=== PATIENT | female | born 1985 | race Caucasian/White ===

== ENCOUNTER 2017-04-30 11:47 | Emergency (ER) | payer BC, OTHER ==
[~2017-04-30] VITALS: Ht 165.1 cm; Wt 90.4 kg
[2017-04-30 11:55] VITALS: TEMP 36.7; Ht 165.1 cm; Wt 90.4 kg
[2017-04-30 12:34] VITALS: BP 135/84; PULSE 74; O2SAT 96
--- NOTE | 2017-04-30 16:32 | EMERGENCY ROOM VISIT NOTE ---
History Report prepared by Ede: Radha Kulkarni Under the Supervision of: Dr. Miller Lyon M.D. First contact with patient: 12:19 Chief Complaint: ALLERGIC REACTION Stated Complaint: ALLERGIC REACTION TO MEDICATION Nursing Triage Summary: triage note: pt rash and swelling to face since tuesday "i was taking penicillan and tyelnoal 3 for an abscessed tooth, my dentist changed it to clindamycin and i went to the acute care clinic for a steroid shot and they told me if my symptoms were still persisting to come to the ed, today my rash is on my chest too." pt reports taking no benedryl today. History of Present Illness The patient is a 32 year old female who presents to the Emergency Room with complaints of a worsening allergic reaction starting yesterday morning. She has a tooth abscess which is being pulled in 2 days. She took penicillin and Tylenol with codeine at night 2 days ago and went to sleep. She woke up yesterday with a rash on her face which is hot and itchy. She tried Benadryl to no significant relief. She went to urgent care and received a shot of steroid. She was sent home with a prednisone taper which she did not take. She was instructed to go to the ED if she did not improve today. She woke up today and noticed that the rash had spread to her chest. She denies any tongue swelling, difficulty breathing, fever, or vomiting. She does not have the rash on her arms or legs. She has stopped taking both the Tylenol with codeine and the penicillin. She is now on clindamycin. She has experienced nausea with morphine before, but no rash. She notes that when she had an epidural before during labor , she had similar itchiness to the face, but it was worse. She denies any family history of penicillin allergy. She does have dogs and cats at home. Source of History: patient Onset: yesterday morning Position: other (global) Quality: other (allergic reaction) Timing: worsening Associated Symptoms: No fevers, No vomiting Note: Pt reports itchiness and redness. Pt denies tongue swelling, difficulty breathing. Review of Systems See HPI for pertinent positives & negatives. A total of 10 systems reviewed and were otherwise negative. Past Medical & Surgical Medical Problems: (1) Asthma Surgical Problems: (1) S/P hysterectomy Family History Hypertension Seizures Social History Smoking Status: Current Every Day Smoker Marital Status: Housing Status: lives with family Physical Exam Vital Signs Date Time Temp Pulse Resp B/P (MAP) Pulse Ox O2 Delivery O2 Flow Rate FiO2 04/30/17 12:34 74 18 135/84 96 04/30/17 11:55 36.7 74 18 135/84 96 Room Air 04/30/17 11:53 97 Room Air Physical Exam Constitutional: Vital signs reviewed. Eyes: Pupils are equal round reactive to light. Conjunctiva are noninjected. ENT: Pharynx is clear without erythema or exudate. Mucous membranes are moist. No swelling to the gums. Neck supple without meningeal signs. No swelling to the uvula or tongue. No cervical lymphadenopathy. No mucosal lesions. Respiratory: Clear to auscultation bilaterally. Breath sounds are equal bilaterally. No wheezing or stridor. Cardiovascular: Regular rate and rhythm. No rubs or gallops. GI: Soft, nondistended and nontender. Bowel sounds are present. Musculoskeletal: No peripheral edema. No lower extremity tenderness. Integumentary: No cyanosis. Erythema to the face, neck, and upper chest with scattered papular lesions. No vesicles or bullae. No lesions to the back, abdomen, or extremities including the palms and soles. Neurological: The patient is awake and alert. No focal deficits. Psychiatric: Normal affect. Medical Decision & Procedures ED Course 1220: The patient was evaluated in room C3. A complete history and physical exam was performed. 1225: I discussed vincenzoight's findings with her. She verbalized agreement of the treatment plan. She was discharged home. Medical Decision This is a 32-year-old female who presents with a rash to her face and upper chest. Differential diagnosis includes urticaria, allergic reaction, heat rash , contact dermatitis. I did perform a limited focused review of portions of the patient's old chart on the electronic medical record. The patient has had no prior visits to this hospital. I did evaluate the patient as noted above. The patient is presenting with a rash to her face and upper chest. She states it feels similar to when she had an allergic reaction to medication given to her the an epidural when she was in labor. She started penicillin and Tylenol No. 4 prior to the rash developing. She did stop these medication and is currently on clindamycin for her tooth. She is following up with her dentist regarding this tooth. She presents with a rash to her face without any signs of angioedema. At this time her symptoms seem most likely consistent with some type of allergy. It was recommended that she continue taking antihistamines at home and start her prednisone taper as prescribed by her other physician. She was discharged in good condition and advised follow with her doctor. Medication Reconcilliation Current Medication List: was personally reviewed by me Blood Pressure Screening Patient's blood pressure: Elevated blood pressure Blood pressure disposition: Referred to PCP Impression Primary Impression: Allergic reaction Additional Impression: Pain, dental Scribe Attestation The scribe's documentation has been prepared under my direct and personally reviewed by me in its entirety. I confirm that the note above accurately reflects all work, treatment, procedures, and medical decision making performed by me. Departure Information Dispostion Home / Self-Care Referrals Linda Emanuel M.D. (PCP) Forms HOME CARE DOCUMENTATION FORM, IMPORTANT VISIT INFORMATION Patient Instructions ED Drug React Allergic, My [facility] Additional Instructions You have been examined and treated today on an emergency basis only. This is not a substitute for, or an effort to provide, complete comprehensive medical care. It is impossible to recognize and treat all injuries or illnesses in a single emergency department visit. It is therefore important that you follow up closely with your physician. Call as soon as possible for an appointment. Return for worsening symptoms or if you develop fever, vomiting, rash in your mouth, swelling to your tongue or throat, difficulty breathing or any other concerning symptoms. Start prednisone as prescribed. Take antihistamines as well. Problem Qualifiers Primary Impression: Allergic reaction Encounter type: initial encounter Qualified Codes: T78.40XA - Allergy, unspecified, initial encounter
== END 2017-04-30 12:40 | disposition home or self-care (01) ==
LOC: C.EDB 11:49 → C.EDC 12:40
DX: T78.40XA Allergy, unspecified, initial encounter (principal); X58.XXXA Exposure to other specified factors, initial encounter; K08.89 Other specified disorders of teeth and supporting structures; J45.909 Unspecified asthma, uncomplicated; F17.210 Nicotine dependence, cigarettes, uncomplicated; Z82.49 Family history of ischemic heart disease and other diseases of the circulatory system

== ENCOUNTER 2017-10-01 09:32 | Emergency (ER) | payer BC, OTHER ==
[~2017-10-01] VITALS: Ht 165.1 cm; Wt 90.0 kg
[2017-10-01 09:37] VITALS: TEMP 36.8; Ht 165.1 cm; Wt 90.0 kg
[2017-10-01] MEDS ORDERED: ONDANSETRON INJ 2 MG/ML 2 ML VIAL IV STA (09:42)
[2017-10-01] MEDS ORDERED: ACETAMINOPHEN IV 100 ML IV STA (09:42)
[2017-10-01] MEDS ORDERED: SODIUM CHLORIDE 0.9% 1000ML 1,000 ML IV STA (09:42)
--- NOTE | 2017-10-01 10:06 | EMERGENCY ROOM VISIT NOTE ---
History First contact with patient: 09:38 Chief Complaint: FLANK PAIN Stated Complaint: LEFT SIDE PAIN History of Present Illness The patient is a 32 year old female who presents to the Emergency Room with complaints of left flank pain that started suddenly this morning about 30 minutes ago. The pain has been constant, severe, starts in the left side and wraps around to the front of the left abdomen, 9/10. Associated chills and nausea, but no vomiting. She did not take any medication for the pain. She states that she was feeling well this morning and not having any pain. She did have some symptoms of urinary frequency and urgency and thought that she was starting to get a UTI. She does report a recent CT scan that showed bilateral stones in her kidneys, but has never passed any stones or had any issues with kidney stones in the past. She denies any headaches, neck pain, chest pain, shortness of breath, syncope, diarrhea or constipation, bloody or black stools, or rash. Review of Systems A complete 10 point review of systems was reviewed with the patient with pertinent positives and negatives as per history of present illness. All else were negative. Past Medical/Surgical History Medical Problems: (1) Asthma Surgical Problems: (1) S/P hysterectomy Family History Hypertension Seizures Social History Smoking Status: Never Smoker Alcohol Use: none Drug Use: none Marital Status: Housing Status: lives with family Current/Historical Medications Scheduled Naproxen (Naproxen), 1 TAB PO BID Ondasetron Odt (Zofran Odt), 4 MG SL Q6H Tamsulosin Hcl (Flomax), 0.4 MG PO DAILY Allergies Reviewed in chart Physical Exam Vital Signs Date Time Temp Pulse Resp B/P (MAP) Pulse Ox O2 Delivery O2 Flow Rate FiO2 10/01/17 12:54 66 20 128/79 97 Room Air 10/01/17 10:56 70 20 124/72 99 Room Air 10/01/17 10:16 77 20 139/80 98 10/01/17 10:01 71 10/01/17 09:37 36.8 83 18 130/75 99 Room Air Physical Exam CONSTITUTIONAL: Pleasant and cooperative. No acute distress, but obviously in pain throughout exam. Well hydrated and well nourished. HEENT: Normocephalic, atraumatic. Pupils equal, round and reactive to light, EOMI. TMs normal. Pharynx normal. Moist mucous membranes. NECK: Supple, full active range of motion without discomfort. RESPIRATORY: Clear to auscultation bilaterally with no wheezing, crackles, rhonchi or stridor. Equal expansion bilaterally. CARDIOVASCULAR: Regular rate and rhythm with no murmurs, rubs or gallops. Normal peripheral perfusion. No edema. GASTROINTESTINAL: Moderately tender throughout the entire left flank and left side of the abdomen with some guarding. No rebound tenderness. Positive CVA tenderness on the left. Soft, nondistended. No palpable masses or HSM. Bowel sounds present in all quadrants. MUSCULOSKELETAL: Full range of motion of all joints without discomfort. INTEGUMENTARY: No rash or other significant dermatologic conditions noted. NEUROLOGIC: Alert and oriented X 4 with normal affect. No focal neurologic deficits noted. Normal strength and sensation, normal speech, normal gait observed. Medical Decision & Procedures ER Provider Diagnostic Interpretation: CT SCAN OF THE ABDOMEN AND PELVIS WITHOUT IV CONTRAST CLINICAL HISTORY: Left flank pain. COMPARISON STUDY: KUB dated 09/02/2017. TECHNIQUE: CT scan of the abdomen and pelvis is performed from the lung bases to the proximal femora. Images are reviewed in the axial, sagittal, and coronal planes. IV contrast was not administered for this examination as per the referring clinician. A dose lowering technique was utilized adhering to the principles of ALARA. CT DOSE: 1354.74 mGy.cm FINDINGS: Lung bases: The heart is normal in size and without pericardial effusion. The lung bases are clear noting dependent atelectasis. There is a tiny hiatal hernia. Liver: The unenhanced liver is enlarged, measuring 21.8 cm in length. The liver demonstrates diffusely diminished attenuation consistent with hepatic steatosis. Fatty sparing is seen adjacent to gallbladder fossa. There is no intrahepatic biliary ductal dilatation. Gallbladder: Unremarkable. Spleen: Normal in size and attenuation. Pancreas: Unremarkable. Adrenal glands: Unremarkable. Kidneys: The unenhanced kidneys are normal in size. There is mild left hydroureteronephrosis. There is a 4 mm calculus present which either protrudes from the left vesicoureteral junction or has already passed into the bladder. This is seen on axial image #417. No additional left renal calculi are identified. At least 2 nonobstructing right renal calculi measuring up to 3 mm. There is no right-sided hydronephrosis. There is no evidence of contour deforming renal mass lesion. Abdominal vasculature: The abdominal aorta is normal in course and caliber. Bowel: There is moderate colonic fecal retention. No bowel obstruction is seen. The appendix is not identified and reported surgically absent. Peritoneum: There is no intraperitoneal free air or abdominal ascites. There is a small fat-containing umbilical hernia. Lymphadenopathy: None. Pelvic viscera: As noted above there is a 4 mm calculus either protruding from the left vesicoureteral junction or within the bladder lumen. The bladder is otherwise normal as imaged. The uterus is surgically absent. No adnexal lesion is seen. Small ovarian follicles are identified. Skeletal structures: No lytic or blastic lesions are seen. IMPRESSION: 1. There is mild left hydroureteronephrosis. A 4 mm calculus either protrudes from the left vesicoureteral junction or has already passed into the bladder. 2. No additional left renal calculi are identified. Small nonobstructing calculi are noted on the right. 3. Hepatomegaly and hepatic steatosis. 4. Moderate constipation. Laboratory Results 10/01/17 09:47 Red Blood Count 4.99, Mean Corpuscular Volume 91.0, Mean Corpuscular Hemoglobin 31.5, Mean Corpuscular Hemoglobin Concent 34.6, Mean Platelet Volume 9.9, Neutrophils (%) (Auto) 67.0, Lymphocytes (%) (Auto) 23.1, Monocytes (%) (Auto) 6.3, Eosinophils (%) (Auto) 2.8, Basophils (%) (Auto) 0.7, Neutrophils # (Auto) 5.59, Lymphocytes # (Auto) 1.93, Monocytes # (Auto) 0.53, Eosinophils # (Auto) 0.23, Basophils # (Auto) 0.06 10/01/17 09:47 Test 10/01/17 09:42 10/01/17 09:47 Urine Color YELLOW Urine Appearance CLEAR (CLEAR) Urine pH 7.5 (4.5-7.5) Urine Specific Warren 1.022 (1.000-1.030) Urine Protein NEG (NEG) Urine Glucose (UA) NEG (NEG) Urine Ketones NEG (NEG) Urine Occult Blood 1+ (NEG) Urine Nitrite NEG (NEG) Urine Bilirubin NEG (NEG) Urine Urobilinogen NEG (NEG) Urine Leukocyte Esterase NEG (NEG) Urine WBC (Auto) 0 /hpf (0-5) Urine RBC (Auto) 10-30 /hpf (0-4) Urine Hyaline Casts (Auto) 0 /lpf (0-5) Urine Epithelial Cells (Auto) 10-20 /lpf (0-5) Urine Bacteria (Auto) NEG (NEG) Urine Test NEG (NEG) White Blood Count 8.35 K/uL (4.8-10.8) Red Blood Count 4.99 M/uL (4.2-5.4) Hemoglobin 15.7 g/dL (12.0-16.0) Hematocrit 45.4 % (37-47) Mean Corpuscular Volume 91.0 fL (80-100) Mean Corpuscular Hemoglobin 31.5 pg (25-34) Mean Corpuscular Hemoglobin Concent 34.6 g/dl (32-36) Platelet Count 302 K/uL (130-400) Mean Platelet Volume 9.9 fL (7.4-10.4) Neutrophils (%) (Auto) 67.0 % Lymphocytes (%) (Auto) 23.1 % Monocytes (%) (Auto) 6.3 % Eosinophils (%) (Auto) 2.8 % Basophils (%) (Auto) 0.7 % Neutrophils # (Auto) 5.59 K/uL (1.4-6.5) Lymphocytes # (Auto) 1.93 K/uL (1.2-3.4) Monocytes # (Auto) 0.53 K/uL (0.11-0.59) Eosinophils # (Auto) 0.23 K/uL (0-0.5) Basophils # (Auto) 0.06 K/uL (0-0.2) RDW Standard Deviation 42.0 fL (36.4-46.3) RDW Coefficient of Variation 12.7 % (11.5-14.5) Immature Granulocyte % (Auto) 0.1 % Immature Granulocyte # (Auto) 0.01 K/uL (0.00-0.02) Anion Gap 9.0 mmol/L (3-11) Est Creatinine Clear Calc Drug Dose 77.1 ml/min Estimated GFR () 72.7 Estimated GFR (Non- 62.7 BUN/Creatinine Ratio 13.0 (10-20) Calcium Level 10.2 mg/dl (8.5-10.1) Total Bilirubin 0.9 mg/dl (0.2-1) Direct Bilirubin 0.1 mg/dl (0-0.2) Aspartate Amino Transf (AST/SGOT) 23 U/L (15-37) Alanine Aminotransferase (ALT/SGPT) 37 U/L (12-78) Alkaline Phosphatase 76 U/L (45-117) Total Protein 8.6 gm/dl (6.4-8.2) Albumin 4.3 gm/dl (3.4-5.0) Lipase 134 U/L (73-393) Medications Administered Medications (Trade) Dose Ordered Sig/Odin Route Start Time Stop Time Status Last Admin Dose Admin Sodium Chloride 1,000 ml @ 999 mls/hr Q1H1M STAT IV 10/01/17 09:42 10/01/17 10:42 DC 10/01/17 09:55 999 MLS/HR Ondansetron HCl (Zofran Inj) 4 mg NOW STAT IV 10/01/17 09:42 10/01/17 09:46 DC 10/01/17 09:55 4 MG Acetaminophen 100 ml @ 400 mls/hr NOW STAT IV 10/01/17 09:42 10/01/17 09:56 DC 10/01/17 09:55 400 MLS/HR Ketorolac Tromethamine (Toradol Inj) 15 mg NOW STAT IV 10/01/17 10:49 10/01/17 10:50 DC 10/01/17 10:55 15 MG Tamsulosin HCl (Flomax Cap) 0.4 mg NOW ONCE PO 10/01/17 12:30 10/01/17 12:31 DC 10/01/17 12:52 0.4 MG Medical Decision CC: Patient presenting with complaint of left flank pain Interpretation of Labs: No leukocytosis, no anemia, no significant electrolyte abnormality, normal renal function, normal liver enzymes and lipase. UA shows large blood, negative for infection. Urine negative. Differential Diagnosis: Includes, but not limited to ureteral stone, UTI, pyelonephritis, pancreatitis, gastritis, appendicitis, diverticulitis, among others. Medication Reconciliation: I attest that I have personally reviewed the patient' s current medication list. Initial vital signs review: I reviewed the patient's vital signs and interpret them as follows: T: Afebrile; BP: Normotensive; HR: Within normal limits; RR : Within normal limits; Pulse Ox: Within normal limits on room air. Blood pressure screening: The patient was found to have normal blood pressure on screening and does not require follow-up for repeat blood pressure check. Summary: Patient was evaluated at bedside, history and physical exam performed. Patient is alert and oriented, in no acute distress but is in obvious pain, sitting on the stretcher and holding her left side. Diffuse tenderness at the left side of the abdomen, positive CVA tenderness on the left. Orders were placed at bedside for labs, UA and urine , IV fluids for hydration, IV Tylenol, CT abdomen/pelvis to evaluate for obstructing ureteral stone. Patient discussed with Dr. Chaudhry, who agrees with my assessment and plan. Labs reviewed as above, unremarkable. UA consistent with hematuria, no infection. She is not . CT imaging shows a very distal 4 mm ureteral stone that appears to be close to passing into the bladder. Patient reassessed multiple times throughout ED stay, her pain is much improved. Her nausea is resolved. She is tolerating oral fluids. She was also given a dose of Toradol with continued improvement in pain. She declined any narcotics due to poor tolerance and possible allergy. I discussed all results with the patient and plan for discharge, encouraged her to follow up with her PCP and urology. Patient was given Rx for naproxen, Flomax, and Zofran. Provided with a urine straining. Patient was given strict return precautions should her symptoms worsen, she verbalized understanding. Patient was discharged home in stable condition and ambulatory. Impression Primary Impression: Left ureteral calculus Departure Information Dispostion Home / Self-Care Condition GOOD Prescriptions Ondasetron Odt (ZOFRAN ODT) 4 Mg Tab 4 MG SL Q6H for Nausea, #10 TAB Prov: Kayleen Joseph, SENIOR TALENT MANAGEMENT CONSULTANT 10/01/17 Naproxen (NAPROXEN) 500 Mg Tab 1 TAB PO BID for Pain for 10 Days, #20 TAB Prov: Kayleen Joseph, SENIOR TALENT MANAGEMENT CONSULTANT 10/01/17 Tamsulosin Hcl (FLOMAX) 0.4 Mg Cap 0.4 MG PO DAILY for 7 Days, #7 CAP Prov: Kayleen Joseph, SENIOR TALENT MANAGEMENT CONSULTANT 10/01/17 Referrals Kevin Hanks PA-C (PCP) Patient Instructions ED Stone Renal W Colic, ED Strainer Urine, My [facility] Additional Instructions You have been treated in the Emergency Department today for a Kidney Stone ( Nephrolithiasis). You have been prescribed Naproxen to be used for pain control, one tablet every 12 hours as needed for pain. Do not take any other NSAIDs such as ibuprofen, Aleve, Advil, Motrin, etc. while you are taking this medication. You have been prescribed Zofran to be used for any nausea or vomiting. Take as prescribed. You have been prescribed Flomax 0.4 mg to be taken ONCE daily. This medicine has been prescribed as it can help relax the smooth muscles of the urinary tract increasing transit time of the kidney stone. For pain control, you can use the following [id number] medicines (if >12 yo): - Regular strength (325mg/tab) Tylenol (acetaminophen) 2 tabs every 4-6 hours as needed. Do not exceed 10 tablets in a 24 hour period. Avoid taking more than 3000mg of Tylenol per day. This includes any other sources of acetaminophen you may take on a regular basis. You have been provided a strainer and specimen collection cup. You should strain your urine to collect any passed stones. Your stones can be placed into the specimen cup and taken to your Urologist for further evaluation. You have been provided the contact information for the on-call Urologist. You should contact the Urologist's office tomorrow to establish a follow-up appointment from today's Emergency Department visit. Return to the Emergency Department if your symptoms persist despite the treatment plan outlined above or if you develop the following symptoms: Severe worsening pain, fever, chills, or large amounts of blood in your urine. Work Instructions Return To Work: 3 days
[2017-10-01 10:09] LABS: BASO % 0.7 %; BASO ABS # 0.06 K/uL (0-0.2); EOS % 2.8 %; EOS ABS # 0.23 K/uL (0-0.5); HEMATOCRIT 45.4 % (37-47); HEMOGLOBIN 15.7 g/dL (12.0-16.0); IG# 0.01 K/uL (0.00-0.02); LYMPH % 23.1 %; LYMPH ABS # 1.93 K/uL (1.2-3.4); MEAN CORPUSCULAR HEMOGLOBIN 31.5 pg (25-34); MEAN CORPUSCULAR HGB CONC 34.6 g/dl (32-36); MEAN PLATELET VOLUME 9.9 fL (7.4-10.4); MONO % 6.3 %; MONO ABS # 0.53 K/uL (0.11-0.59); NEUT ABS # 5.59 K/uL (1.4-6.5); PLATELET COUNT 302 K/uL (130-400); RED CELL DISTRIBUTION WIDTH CV 12.7 % (11.5-14.5); WHITE BLOOD COUNT 8.35 K/uL (4.8-10.8)
[2017-10-01 10:17] LABS: ALBUMIN 4.3 gm/dl (3.4-5.0); CALCIUM 10.2 mg/dl (8.5-10.1); CREATININE 1.14 mg/dl (0.60-1.20); POTASSIUM 3.5 mmol/L (3.5-5.1)
[2017-10-01 10:20] LABS: TOTAL PROTEIN 8.6 gm/dl (6.4-8.2)
[2017-10-01] MEDS ORDERED: KETOROLAC TROMETHAMINE 30 MG/ML VIAL IV STA (10:49)
--- NOTE | 2017-10-01 11:16 | DIAGNOSTIC IMAGING REPORT ---
CT SCAN OF THE ABDOMEN AND PELVIS WITHOUT IV CONTRAST CLINICAL HISTORY: Left flank pain. COMPARISON STUDY: KUB dated 09/02/2017. TECHNIQUE: CT scan of the abdomen and pelvis is performed from the lung bases to the proximal femora. Images are reviewed in the axial, sagittal, and coronal planes. IV contrast was not administered for this examination as per the referring clinician. A dose lowering technique was utilized adhering to the principles of ALARA. CT DOSE: 1354.74 mGy.cm FINDINGS: Lung bases: The heart is normal in size and without pericardial effusion. The lung bases are clear noting dependent atelectasis. There is a tiny hiatal hernia. Liver: The unenhanced liver is enlarged, measuring 21.8 cm in length. The liver demonstrates diffusely diminished attenuation consistent with hepatic steatosis. Fatty sparing is seen adjacent to gallbladder fossa. There is no intrahepatic biliary ductal dilatation. Gallbladder: Unremarkable. Spleen: Normal in size and attenuation. Pancreas: Unremarkable. Adrenal glands: Unremarkable. Kidneys: The unenhanced kidneys are normal in size. There is mild left hydroureteronephrosis. There is a 4 mm calculus present which either protrudes from the left vesicoureteral junction or has already passed into the bladder. This is seen on axial image #417. No additional left renal calculi are identified. At least 2 nonobstructing right renal calculi measuring up to 3 mm. There is no right-sided hydronephrosis. There is no evidence of contour deforming renal mass lesion. Abdominal vasculature: The abdominal aorta is normal in course and caliber. Bowel: There is moderate colonic fecal retention. No bowel obstruction is seen. The appendix is not identified and reported surgically absent. Peritoneum: There is no intraperitoneal free air or abdominal ascites. There is a small fat-containing umbilical hernia. Lymphadenopathy: None. Pelvic viscera: As noted above there is a 4 mm calculus either protruding from the left vesicoureteral junction or within the bladder lumen. The bladder is otherwise normal as imaged. The uterus is surgically absent. No adnexal lesion is seen. Small ovarian follicles are identified. Skeletal structures: No lytic or blastic lesions are seen. IMPRESSION: 1. There is mild left hydroureteronephrosis. A 4 mm calculus either protrudes from the left vesicoureteral junction or has already passed into the bladder. 2. No additional left renal calculi are identified. Small nonobstructing calculi are noted on the right. 3. Hepatomegaly and hepatic steatosis. 4. Moderate constipation. Electronically signed by: Oswaldo Umana M.D. 10/01/2017 11:14 AM Dictated Date/Time: 10/01/2017 11:07 AM
[2017-10-01] MEDS ORDERED: ONDA4TAB10 SL (12:25)
[2017-10-01] MEDS ORDERED: TAMS0.4C38 PO (12:25)
[2017-10-01] MEDS ORDERED: NAPR500T3 PO (12:25)
[2017-10-01] MEDS ORDERED: TAMSULOSIN HCL 0.4 MG CAP PO ONE (12:30)
[2017-10-01 12:54] VITALS: BP 128/79; PULSE 66; O2SAT 97
== END 2017-10-01 13:01 | disposition home or self-care (01) ==
LOC: C.EDB 09:34 → C.EDA 13:01
DX: N20.1 Calculus of ureter (principal); Z82.49 Family history of ischemic heart disease and other diseases of the circulatory system; Z82.0 Family history of epilepsy and other diseases of the nervous system